=== PATIENT | female | born 1950 | race African-American/Black ===

== ENCOUNTER 2022-11-24 22:25 | Inpatient (IN) | payer MEDICARE, OTHER ==
[~2022-11-24] VITALS: Ht 167.6 cm; Wt 71.2 kg
--- NOTE | 2022-11-24 22:30 | NUR ---
Dr. Corona evaluated patient at bedside. MSE in progress.
--- NOTE | 2022-11-24 22:34 | NUR ---
Per Dr. Corona patient is medically clear.
[2022-11-24] MEDS ORDERED: CEPH500T PO (22:49)
[2022-11-24] MEDS ORDERED: LORA0.5T48 PO (22:49)
[2022-11-24] MEDS ORDERED: OLAN5TAB70 PO (22:49)
[2022-11-24] MEDS ORDERED: AMLO-212 PO (22:49)
[2022-11-24] MEDS ORDERED: HALO50AM2 IM (23:03)
[2022-11-24 23:40] VITALS: BP 170/109
--- NOTE | 2022-11-24 23:41 | NUR ---
Patient taken to MHU room 141B via gurney with personal belongings. Patient in stable condition, no signs of distress noted. MHU RN aware of patient's arrival.
[2022-11-25] MEDS ORDERED: MAG HYDROX/AL HYDROX/SIMETH 30 ML LIQUID UDC PO PRN (00:15)
[2022-11-25] MEDS ORDERED: MAGNESIUM HYDROXIDE 30 ML LIQUID UDC PO PRN (00:15)
[2022-11-25] MEDS ORDERED: LORAZEPAM 1 MG TABLET PO PRN (00:15)
[2022-11-25] MEDS: CLONIDINE HCL 0.1 MG TABLET PO PRN (00:28)
[2022-11-25] MEDS: ZOLPIDEM 5 MG TABLET PO PRN (00:28)
--- NOTE | 2022-11-25 01:22 | NUR ---
GPS: Admitted to unit earlier around 2335 a 72 yr.old female from [facility]. on a 72 hour hold for GD. Pt. was aggressive,combative,hyper-restoration,unable to plan for self-care,per hold. Pt.to be under the care of /. Pt.was aggressive,uncooperative,angry,irritable during admission/interview process. Poor insight and impaired judgment. Personal belongings list completed/skin assessment done. Unit rules explained.Pt's rights handbook/advisement given. Pt.had high B/P, PULP GRINDER Keh notified with orders,carried-out. Safety emphasized. Will monitor closely.Smoke cessation education provided by staff.
[2022-11-25 08:18] VITALS: BP 150/98
[2022-11-25] MEDS: OLANZAPINE 2.5 MG TABLET PO SCH ×3 (09:00→16:14)
[2022-11-25] MEDS: MEMANTINE HCL 5 MG TABLET PO SCH ×3 (09:00→20:45)
[2022-11-25] MEDS: NICOTINE 21 MG/24HR PATCH TD SCH ×2 (09:00→09:40)
[2022-11-25] MEDS: ESCITALOPRAM OXALATE 10 MG TABLET PO SCH ×2 (09:00→09:40)
[2022-11-25] MEDS ORDERED: HALO50AM6 IM (11:33)
[2022-11-25] MEDS ORDERED: DILT30TA2 PO (11:34)
[2022-11-25] MEDS ORDERED: ESCI10TA PO (11:36)
[2022-11-25] MEDS ORDERED: BUPR-53 PO (11:37)
[2022-11-25] MEDS ORDERED: FLUT1BLS6 IH (11:38)
[2022-11-25] MEDS ORDERED: AMLO10TA59 PO (11:39)
[2022-11-25] MEDS ORDERED: ZOLP5TAB2 PO (11:39)
[2022-11-25] MEDS: AMLODIPINE 10 MG TABLET PO SCH (12:13)
[2022-11-25] MEDS: DILTIAZEM HCL 30 MG TABLET PO SCH (13:28)
[2022-11-25 16:30] VITALS: BP 146/98
--- NOTE | 2022-11-25 18:16 | NUR ---
patient is alert and oriented x3, ambulates with unsteady gait, has been refused all medication she stated that "i am no sick i don't need any medication.only took medication for hypertension .encouraged to attend in group activity will continue to monitoring for safety.
[2022-11-25 20:01] VITALS: BP 142/88
[2022-11-26 07:59] VITALS: BP 153/91
[2022-11-26] MEDS: NICOTINE 21 MG/24HR PATCH TD SCH (09:00)
[2022-11-26] MEDS: ESCITALOPRAM OXALATE 10 MG TABLET PO SCH (09:07)
[2022-11-26] MEDS: MEMANTINE HCL 5 MG TABLET PO SCH ×2 (09:07→21:07)
[2022-11-26] MEDS: OLANZAPINE 2.5 MG TABLET PO SCH ×2 (09:07→17:15)
[2022-11-26] MEDS: AMLODIPINE 10 MG TABLET PO SCH (09:08)
[2022-11-26] MEDS: DILTIAZEM HCL 30 MG TABLET PO SCH (09:11)
[2022-11-26] MEDS: FLUTICASONE/VILANTEROL 1 EACH BLST.W.DEV INH SCH (09:14)
--- NOTE | 2022-11-26 15:26 | NUR ---
WEI Initial Discharge Note: Pt currently resides at home with caretakers located at [address] [place] [address] . Per pt's daughter, Alhaji [phone], pt will return home with caregivers upon discharge. SW will contact pt's caregiver, Ashley to discuss pt's continuation of care at home. WEI will continue to work with pt, family and MD to ensure a safe and proper discharge plan.
[2022-11-26 16:34] VITALS: BP 133/98
--- NOTE | 2022-11-26 17:25 | NUR ---
patient was placed on 14 day hold,Faxed 14 days certificate to Courts at . Spoke with [place] [address] cash posting representative - Ольга whom stated that the court is not accepting faxes anymore, the 14 day hold certificate needs to be e-file. physician practice market manager - Dede notified of exiting situation. will endorse to next shift to follow up.
[2022-11-26 19:56] VITALS: BP 139/91
--- NOTE | 2022-11-27 07:35 | NUR ---
GPS Nursing notes: Patient is in bed awake, pleasant on approach, "Good Morning", denies pain or discomforts. will continue to monitor.
[2022-11-27 08:00] VITALS: BP 148/78
[2022-11-27] MEDS: NICOTINE 21 MG/24HR PATCH TD SCH ×2 (08:34→08:41)
[2022-11-27] MEDS: DILTIAZEM HCL 30 MG TABLET PO SCH (08:35)
[2022-11-27] MEDS: AMLODIPINE 10 MG TABLET PO SCH (08:35)
[2022-11-27] MEDS: FLUTICASONE/VILANTEROL 1 EACH BLST.W.DEV INH SCH ×2 (08:35→08:41)
[2022-11-27] MEDS: OLANZAPINE 2.5 MG TABLET PO SCH ×2 (08:36→16:41)
[2022-11-27] MEDS: MEMANTINE HCL 5 MG TABLET PO SCH ×2 (08:36→20:36)
[2022-11-27] MEDS: ESCITALOPRAM OXALATE 10 MG TABLET PO SCH (08:36)
[2022-11-27 13:27] LABS: HEMATOCRIT 42.2 % (31.2-41.9); MEAN CORPUSCULAR HEMOGLOBIN 26.7 uug (24.7-32.8); MEAN CORPUSCULAR VOLUME 83.2 fL (75.5-95.3); PLATELET COUNT (AUTO) 250 K/uL (179-408)
[2022-11-27 13:51] LABS: THYROID STIMULATING HORMONE 1.122 mIU/mL (0.358-3.740)
[2022-11-27 14:06] LABS: ALANINE AMINOTRANSFERASE 17 U/L (14-59); ALKALINE PHOSPHATASE 146 U/L (50-136); ASPARTATE AMINOTRANSFERASE 16 U/L (15-37); BILIRUBIN,TOTAL 0.3 mg/dL (0.2-1.0); CARBON DIOXIDE 26 mmol/L (21-32); CHLORIDE 103 mmol/L (98-107); CREATININE 0.9 mg/dL (0.6-1.3); GLUCOSE 113 mg/dL (74-106); POTASSIUM 3.4 mmol/L (3.5-5.1); TOTAL PROTEIN, SERUM 7.5 g/dL (6.4-8.2); UREA NITROGEN, BLOOD 16 mg/dL (7-18)
[2022-11-27 16:00] VITALS: BP 129/93
[2022-11-27 20:14] VITALS: BP 162/102
[2022-11-27] MEDS: ZOLPIDEM 5 MG TABLET PO PRN (22:15)
--- NOTE | 2022-11-27 22:15 | NUR ---
Pt requested medications to help with falling asleep. Gave Zolpidem 5mg po prn. Safe environment provided. Will continue to monitor.
[2022-11-28 08:00] VITALS: BP 127/101
[2022-11-28] MEDS: AMLODIPINE 10 MG TABLET PO SCH (08:35)
[2022-11-28] MEDS: MEMANTINE HCL 5 MG TABLET PO SCH ×2 (08:35→20:34)
[2022-11-28] MEDS: OLANZAPINE 2.5 MG TABLET PO SCH ×2 (08:35→16:41)
[2022-11-28] MEDS: ESCITALOPRAM OXALATE 10 MG TABLET PO SCH (08:36)
[2022-11-28] MEDS: DILTIAZEM HCL 30 MG TABLET PO SCH (08:37)
[2022-11-28] MEDS: FLUTICASONE/VILANTEROL 1 EACH BLST.W.DEV INH SCH (08:38)
[2022-11-28] MEDS: NICOTINE 21 MG/24HR PATCH TD SCH (08:38)
[2022-11-28] MEDS: ACETAMINOPHEN 325 MG TABLET PO PRN (11:20)
--- NOTE | 2022-11-28 11:55 | NUR ---
Patient had court hearing today, and director of payroll Dash Barton gave 14 Day hold probable cause for GD only.
--- NOTE | 2022-11-28 15:19 | NUR ---
Received patient awake in her room. Patient is A/O X 2 to person. Patient is confused "where have you been? I miss you!" "You don't have to worry about anything, I got this!" Patient is forgetful, disorganized, disoriented, cooperative with nursing care, compliant with medications. Reality orientation provided. Fall and safety precautions implemented.
[2022-11-28 16:00] VITALS: BP 137/83
--- NOTE | 2022-11-28 19:59 | NUR ---
Patient in the TV room during initial rounds. In no acute respiratory distress. No complaint presented, jolly woman, Safety measures and fall prevention continuos. VS stable.
[2022-11-28 20:00] VITALS: BP 137/71
[2022-11-28] MEDS: CLONIDINE HCL 0.1 MG TABLET PO PRN (20:34)
[2022-11-29 07:41] VITALS: BP 137/91
[2022-11-29] MEDS: NICOTINE 21 MG/24HR PATCH TD SCH ×2 (08:58→09:00)
[2022-11-29] MEDS: DILTIAZEM HCL 30 MG TABLET PO SCH (08:59)
[2022-11-29] MEDS: FLUTICASONE/VILANTEROL 1 EACH BLST.W.DEV INH SCH ×2 (09:00→09:01)
[2022-11-29] MEDS: ESCITALOPRAM OXALATE 10 MG TABLET PO SCH (09:00)
[2022-11-29] MEDS: AMLODIPINE 10 MG TABLET PO SCH (09:00)
[2022-11-29] MEDS: MEMANTINE HCL 5 MG TABLET PO SCH ×2 (09:00→21:04)
[2022-11-29] MEDS: OLANZAPINE 5 MG TABLET PO SCH ×2 (09:03→17:14)
[2022-11-29] MEDS: ACETAMINOPHEN 325 MG TABLET PO PRN (13:37)
--- NOTE | 2022-11-29 13:50 | NUR ---
Patient is given Tylenol 650 mg at 13:37 for lower back pain, will be monitored for effectiveness.
--- NOTE | 2022-11-29 15:07 | NUR ---
Patient is engaged in conversations, confused and disorganized at times, forgetful, pleasant, compliant with medications, cooperative with nursing care, intrusive. Patient is a/O X 2 -3 to person, place. Patient is encourage to vent feelings and emotions. Fall and safety precautions implemented.
[2022-11-29 16:24] VITALS: BP 138/67
[2022-11-29 21:22] VITALS: BP 142/89
--- NOTE | 2022-11-30 04:58 | NUR ---
Pt is pleasant up on approach. Pt can be confused and disorganized at times and forgetful. Pt is compliant with medications and cooperative with nursing care. Patient is a/O X 2 -3 to person, place. Encourage pt to ventilate feelings. Reassurance and emotional support provided .Fall and safety precautions implemented. Continue to monitor for safety.
[2022-11-30 08:26] VITALS: BP 164/85
[2022-11-30] MEDS: ESCITALOPRAM OXALATE 10 MG TABLET PO SCH (08:50)
[2022-11-30] MEDS: AMLODIPINE 10 MG TABLET PO SCH (08:50)
[2022-11-30] MEDS: OLANZAPINE 5 MG TABLET PO SCH ×2 (08:51→16:53)
[2022-11-30] MEDS: NICOTINE 21 MG/24HR PATCH TD SCH (08:51)
[2022-11-30] MEDS: FLUTICASONE/VILANTEROL 1 EACH BLST.W.DEV INH SCH (08:51)
[2022-11-30] MEDS: MEMANTINE HCL 5 MG TABLET PO SCH ×2 (08:51→20:47)
[2022-11-30] MEDS: DILTIAZEM HCL 30 MG TABLET PO SCH (08:51)
--- NOTE | 2022-11-30 14:50 | NUR ---
Patient is pleasantly confused, intrusive, forgetful, disorganized, sociable, interactive with peers, and group activities, compliant with medications, cooperative with nursing care. Patient is alert, oriented X 3 to person, place. Patient is encourage to verbalize concerns. Fall and safety precautions implemented.
[2022-11-30 17:27] VITALS: BP 134/89
[2022-11-30 21:56] VITALS: BP 137/86
--- NOTE | 2022-12-01 04:40 | NUR ---
Receive pt in dinning room socializing with staff and peers. Not many changes since last shift. Still irritable and slightly paranoid but compliant with medications and nursing care. Pt is able to perform her ADLs with minimal assistance. Safety precautions in place, continue to monitor for safety, continue with treatment plan.
[2022-12-01 08:32] VITALS: BP 116/75
[2022-12-01] MEDS: FLUTICASONE/VILANTEROL 1 EACH BLST.W.DEV INH SCH ×2 (08:57→09:00)
[2022-12-01] MEDS: DILTIAZEM HCL 30 MG TABLET PO SCH (08:57)
[2022-12-01] MEDS: ESCITALOPRAM OXALATE 10 MG TABLET PO SCH (08:58)
[2022-12-01] MEDS: MEMANTINE HCL 5 MG TABLET PO SCH ×2 (08:58→21:57)
[2022-12-01] MEDS: OLANZAPINE 5 MG TABLET PO SCH ×2 (09:00→16:42)
[2022-12-01] MEDS: AMLODIPINE 10 MG TABLET PO SCH (09:00)
[2022-12-01] MEDS: NICOTINE 21 MG/24HR PATCH TD SCH ×2 (09:00→09:01)
--- NOTE | 2022-12-01 09:00 | NUR ---
Alert, oriented x 4, calm and compliant with taking medication and care. Refused to take Nicotine patch and Breo inhaler. Participates with care and activity.
--- NOTE | 2022-12-01 13:30 | NUR ---
Eating well, calm and compliant with care. Resting comfortably.
[2022-12-01 16:35] VITALS: BP 109/82
--- NOTE | 2022-12-01 17:38 | NUR ---
Requested for peanut butter jelly sandwich instead, provided.
[2022-12-01 20:29] VITALS: BP 142/84
[2022-12-02 08:51] VITALS: BP 139/99
[2022-12-02] MEDS: FLUTICASONE/VILANTEROL 1 EACH BLST.W.DEV INH SCH ×2 (09:00→09:17)
[2022-12-02] MEDS: NICOTINE 21 MG/24HR PATCH TD SCH ×2 (09:00→09:16)
[2022-12-02] MEDS: OLANZAPINE 5 MG TABLET PO SCH ×2 (09:14→16:30)
[2022-12-02] MEDS: MEMANTINE HCL 5 MG TABLET PO SCH ×2 (09:15→20:05)
[2022-12-02] MEDS: ESCITALOPRAM OXALATE 10 MG TABLET PO SCH (09:15)
[2022-12-02] MEDS: AMLODIPINE 10 MG TABLET PO SCH (09:16)
[2022-12-02] MEDS: DILTIAZEM HCL 30 MG TABLET PO SCH (09:17)
[2022-12-02] MEDS: ACETAMINOPHEN 325 MG TABLET PO PRN (10:14)
--- NOTE | 2022-12-02 15:24 | NUR ---
Pt is pleasant up on approach, less confused. Pt is A/O X 2-3 . Pt is able to make her needs known and interacts with staff . Pt attends and participates in group activities. Pt denies SI and verbally contracted for safety. Emotional support provided. safety measures in place. Continue to monitor for safety.
[2022-12-02 16:15] VITALS: BP 154/81
[2022-12-02 22:33] VITALS: BP 116/78
--- NOTE | 2022-12-03 07:10 | NUR ---
GPS Nursing notes: Patient is awake in bed, bright affect, no S/S of distress, cooperative with selfcare. denies pain or discomforts. Fall and safety precaution implemented, emotional support provided.
[2022-12-03 08:22] VITALS: BP 144/89
[2022-12-03] MEDS: NICOTINE 21 MG/24HR PATCH TD SCH (09:00)
[2022-12-03] MEDS: OLANZAPINE 5 MG TABLET PO SCH ×2 (09:02→16:31)
[2022-12-03] MEDS: FLUTICASONE/VILANTEROL 1 EACH BLST.W.DEV INH SCH (09:02)
[2022-12-03] MEDS: AMLODIPINE 10 MG TABLET PO SCH (09:02)
[2022-12-03] MEDS: MEMANTINE HCL 5 MG TABLET PO SCH ×2 (09:03→20:27)
[2022-12-03] MEDS: ESCITALOPRAM OXALATE 10 MG TABLET PO SCH (09:03)
[2022-12-03] MEDS: DILTIAZEM HCL 30 MG TABLET PO SCH (09:04)
--- NOTE | 2022-12-03 11:12 | NUR ---
GPS Nursing notes: Patient is attending groups with no S/S of distress noted. Patient stated she has never smoke, medical chalker soles notified, Nicotine patch discontinued. Patient took all medications as ordered, focus on discharge, social media project manager is aware. Fall and safety precautions implemented, emotional support provided.
[2022-12-03 16:52] VITALS: BP 144/72
[2022-12-03 20:00] VITALS: BP 101/58
--- NOTE | 2022-12-04 07:20 | NUR ---
GPS Nursing notes: Patient is awake in bed, bright affect, no S/S of distress. will continue to monitor.
[2022-12-04] MEDS: FLUTICASONE/VILANTEROL 1 EACH BLST.W.DEV INH SCH (08:24)
[2022-12-04] MEDS: OLANZAPINE 5 MG TABLET PO SCH ×2 (08:28→17:00)
[2022-12-04] MEDS: ESCITALOPRAM OXALATE 10 MG TABLET PO SCH (08:30)
[2022-12-04] MEDS: AMLODIPINE 10 MG TABLET PO SCH (08:31)
[2022-12-04] MEDS: NICOTINE 21 MG/24HR PATCH TD SCH (08:32)
[2022-12-04] MEDS: DILTIAZEM HCL 30 MG TABLET PO SCH (08:32)
[2022-12-04] MEDS: MEMANTINE HCL 5 MG TABLET PO SCH ×2 (08:32→20:19)
[2022-12-04 08:45] VITALS: BP 152/82
--- NOTE | 2022-12-04 14:56 | NUR ---
GPS Nursing Notes: Patient is up and about, with steady gait and good balance, cooperative, medication compliant, attending groups, social with selective peers, denies pain or discomforts. No outburst behavior following directions, emotional support provided. Will continue to monitor.
[2022-12-04 15:14] VITALS: BP 115/71
--- NOTE | 2022-12-04 15:36 | NUR ---
SW Discharge Update: WEI contacted pt's daughter/DPOA, Alhaji [phone] three times and unable to leave a voicemail due to full mailbox. Alhaji is aware that pt is discharging home tomorrow. This SW was unable to complete final discharge plan due to not being able to connect with Alhaji. WEI will continue to contact Alhaji on 12/05/22.
[2022-12-04 20:11] VITALS: BP 130/85
--- NOTE | 2022-12-05 04:13 | NUR ---
gps notes. patient is A&0x3, pleasant, med compliant. No behavioral issues noted
[2022-12-05 08:06] VITALS: BP 148/72
[2022-12-05] MEDS: FLUTICASONE/VILANTEROL 1 EACH BLST.W.DEV INH SCH (09:00)
[2022-12-05] MEDS: NICOTINE 21 MG/24HR PATCH TD SCH (09:00)
[2022-12-05] MEDS: DILTIAZEM HCL 30 MG TABLET PO SCH (09:03)
[2022-12-05 09:04] VITALS: BP 148/72
[2022-12-05] MEDS: ESCITALOPRAM OXALATE 10 MG TABLET PO SCH (09:04)
[2022-12-05] MEDS: OLANZAPINE 5 MG TABLET PO SCH (09:04)
[2022-12-05] MEDS: AMLODIPINE 10 MG TABLET PO SCH (09:04)
[2022-12-05] MEDS: MEMANTINE HCL 5 MG TABLET PO SCH (09:04)
[2022-12-05] MEDS ORDERED: NICO-780 TD (10:54)
[2022-12-05] MEDS ORDERED: MEMA5TAB42 PO (10:54)
--- NOTE | 2022-12-05 13:09 | NUR ---
WEI Discharge Note: Pt will be discharged home located at [address] [place] [address] ([phone]) via uber transportation arranged by pts daughter/DPOA, Alhaji [phone]. WEI spoke with Roland who is aware and agreeable that pt is returning home today. Pt is aware and agreeable with discharge plan. Pt is alert and oriented x4, and is able to plan for self-care at this time. Pt denies any suicidal or homicidal ideation. Pt will follow-up her outpatient steel die engraver (pt and Santinorigoberto did not recall the name). Pt will follow-up with a psychiatrist at [facility] [id number] [facility] [place] [address] . Psychiatrist will be assigned at consultation.
--- NOTE | 2022-12-05 15:08 | NUR ---
Received orders to discharge patient by self to home at [address] [place] [address] ([phone]) via uber transportation arranged by pts daughter/DPOA, Alhaji [phone]. Patient is agreeable with discharge plans, but refused signing all discharge documentation. All belongings were returned to patient. Patient left unit at 14:00. Emotional support provided. Fall and safety precautions implemented.
--- NOTE | 2022-12-05 15:24 | NUR ---
WEI Final Discharge Note: Pt will be discharged home located at [address] [place] [address] ([phone]) via uber transportation arranged by pts daughter/DPOA, Alhaji [phone] and granddaughter, Elijah [phone]. SW spoke with Alhaji who is aware and agreeable that pt is returning home today. Pt is aware and agreeable with discharge plan. Pt is alert and oriented x4 and is able to plan for self-care at this time. Per Alhaji, pts granddaughter Lauryn [phone] will follow-up with the pt at home as well. Pt denies any suicidal or homicidal ideation. Pt will follow-up her outpatient vice president network development (pt and Alhaji did not recall the name). Pt will follow-up with a psychiatrist at [address] [place] [address] . SW provided information to Alhaji. Psychiatrist will be assigned at consultation per Aixa at the clinic. Per Alhaji, pt will follow-up with [facility] and continue services with [facility]). Pt presents with calm mood and congruent affect. PHARMACY: [facility] [address] [place] [address] ([phone]).
== END 2022-12-05 14:00 | disposition home or self-care (01) | DRG 885 ==
LOC: ER 22:25 → GPS 23:22
PROVIDERS: ADMIT Psychiatry & Neurology Psychiatry; ATTEND Nurse Practitioner Acute Care
DX: F29 Unspecified psychosis not due to a substance or known physiological condition (principal); F02.811 Dementia in other diseases classified elsewhere, unspecified severity, with agitation; F02.83 Dementia in other diseases classified elsewhere, unspecified severity, with mood disturbance; F02.818 Dementia in other diseases classified elsewhere, unspecified severity, with other behavioral disturbance; F02.82 Dementia in other diseases classified elsewhere, unspecified severity, with psychotic disturbance; G31.09 Other frontotemporal neurocognitive disorder; J44.9 Chronic obstructive pulmonary disease, unspecified; Z87.440 Personal history of urinary (tract) infections; M19.90 Unspecified osteoarthritis, unspecified site; Z72.0 Tobacco use; E87.6 Hypokalemia; G31.9 Degenerative disease of nervous system, unspecified; I10 Essential (primary) hypertension; Z79.899 Other long term (current) drug therapy
CPT/HCPCS: 36415; 70450; 82747; 84443; 85014; 85025